=== PATIENT | male | born 1990 | race Caucasian/White ===

== ENCOUNTER 2018-01-16 17:09 | Emergency (ER) | payer OTHER ==
[2018-01-16] MEDS: GI Cocktail Oral Solution 30 ML PO ONE (17:24)
[2018-01-16 17:32] VITALS: BP 137/87
--- NOTE | 2018-01-16 17:32 | EDM.PDOC ---
ED HPI GENERAL MEDICAL PROBLEM - General Chief Complaint: Abdominal Pain Stated Complaint: Abdominal pain Time Seen by Provider: 01/16/18 17:20 Source of Information: Reports: Patient History Limitations: Reports: No Limitations - History of Present Illness INITIAL COMMENTS - FREE TEXT/NARRATIVE: Patient is a 27-year-old who came into the ER with chief complaint left upper quadrant pain and epigastric pain states started around noon progressively gotten worse. Pain is around 8 out of 10 at this time. Onset: Today, Gradual Duration: Hour(s):, Constant Location: Reports: Abdomen Quality: Reports: Ache, Sharp Severity: Moderate Improves with: Reports: Medication Worsens with: Reports: None Context: Reports: Other (Illness) - Related Data Allergies Allergy/AdvReac Type Severity Reaction Status Date / Time No Known Allergies Allergy Verified 01/16/18 17:13 Home Meds: Home Meds Acetaminophen [Tylenol Extra Strength] 1,000 mg PO Q4H PRN 01/16/18 [History] Past Medical History - Past Health History Medical/Surgical History: Denies Medical/Surgical History Social & Family History - Living Situation & Occupation Living situation: Reports: with Significant Other Occupation: Employed ED ROS GENERAL - Review of Systems Review Of Systems: See Below Constitutional: Reports: No Symptoms HEENT: Reports: No Symptoms Respiratory: Reports: No Symptoms Cardiovascular: Reports: No Symptoms Endocrine: Reports: No Symptoms GI/Abdominal: Reports: Abdominal Pain : Reports: No Symptoms Musculoskeletal: Reports: No Symptoms Skin: Reports: No Symptoms ED EXAM, GI/ABD - Physical Exam Exam: See Below Exam Limited By: No Limitations General Appearance: Alert, WD/WN, No Apparent Distress Eyes: Bilateral: Normal Appearance, EOMI Ears: Normal External Exam, Normal Canal, Hearing Grossly Normal, Normal TMs Nose: Normal Inspection, Normal Mucosa, No Blood Throat/Mouth: Normal Inspection, Normal Lips, Normal Teeth, Normal Gums, Normal Oropharynx, Normal Voice, No Airway Compromise Head: Atraumatic, Normocephalic Neck: Normal Inspection, Supple, Non-Tender, Full Range of Motion Respiratory/Chest: No Respiratory Distress, Lungs Clear, Normal Breath Sounds, No Accessory Muscle Use, Chest Non-Tender Cardiovascular: Normal Peripheral Pulses, Regular Rate, Rhythm, No Edema, No Gallop, No JVD, No Murmur, No Rub GI/Abdominal Exam: Normal Bowel Sounds, Soft, Tender (Male) Exam: Deferred Rectal (Males) Exam: Deferred Back Exam: Normal Inspection, Full Range of Motion, NT Extremities: Normal Inspection, Normal Range of Motion, Non-Tender, Normal Capillary Refill, No Pedal Edema Neurological: Alert, Oriented, CN II-XII Intact, Normal Cognition, Normal Gait, Normal Reflexes, No Motor/Sensory Deficits Psychiatric: Normal Affect, Normal Mood Skin Exam: Warm, Dry, Intact, Normal Color, No Rash Course - Orders/Labs/Meds Orders: Active Orders 24 hr Category Date Time Status AMYLASE [CHEM] Stat Lab 01/16/18 17:22 Ordered BASIC METABOLIC PANEL,BMP [CHEM] Stat Lab 01/16/18 17:20 Ordered CBC WITH AUTO DIFF [HEME] Stat Lab 01/16/18 17:20 Ordered H PYLORI STOOL ANTIGEN [MREF] Stat Lab 01/16/18 17:21 Ordered LIPASE [CHEM] Stat Lab 01/16/18 17:22 Ordered Meds: Medications Discontinued Medications Generic Name Dose Route Start Last Admin Trade Name Freq PRN Reason Stop Dose Admin Al Hydroxide/Mg Hydroxide 30 ml 01/16/18 17:20 01/16/18 17:24 Gi Cocktail PO 01/16/18 17:21 30 ml ONETIME ONE Administration Departure - Departure Time of Disposition: 17:50 Disposition: Home, Self-Care 01 Condition: Good Clinical Impression: Abdominal pain Gastritis Qualifiers: Gastritis type: unspecified gastritis Chronicity: acute - Discharge Information *PRESCRIPTION DRUG MONITORING PROGRAM REVIEWED*: No *COPY OF PRESCRIPTION DRUG MONITORING REPORT IN PATIENT MARCIA: No Referrals: Rupinder Burgos PA-C [Primary Care Provider] - Care Plan Goals: Patient diagnosed with gastritis at this time we will send him home on Pepcid 20 mg twice a day for the next 10 days if symptoms return or worsen patient is to see primary physician. - My Orders Last 24 Hours: My Active Orders 01/16/18 17:20 BASIC METABOLIC PANEL,BMP [CHEM] Stat CBC WITH AUTO DIFF [HEME] Stat 01/16/18 17:21 H PYLORI STOOL ANTIGEN [MREF] Stat 01/16/18 17:22 AMYLASE [CHEM] Stat LIPASE [CHEM] Stat - Assessment/Plan Last 24 Hours: My Active Orders 01/16/18 17:20 BASIC METABOLIC PANEL,BMP [CHEM] Stat CBC WITH AUTO DIFF [HEME] Stat 01/16/18 17:21 H PYLORI STOOL ANTIGEN [MREF] Stat 01/16/18 17:22 AMYLASE [CHEM] Stat LIPASE [CHEM] Stat
[2018-01-16] MEDS: Famotidine 20 MG Tab PO ONE (17:39)
[2018-01-16 17:49] LABS: CHLORIDE,CL 102 mmol/L (98-107); SODIUM,NA 140 mmol/L (136-145)
== END 2018-01-16 18:05 | disposition home or self-care (01) ==
LOC: LL.ED 17:09
DX: K29.00 Acute gastritis without bleeding (principal)
CPT/HCPCS: 36415; 80048; 82150; 83690; 85025; 99284; A9270

== ENCOUNTER 2020-12-04 07:42 | Day surgery (SDC) | payer OTHER ==
[2020-12-04] MEDS ORDERED: Propofol 200 MG/20 ML SDV ONE ×2 (08:05→09:32)
[2020-12-04] MEDS ORDERED: Lactated Ringers 1,000 ML IV SCH (09:15)
[2020-12-04] MEDS ORDERED: Sodium Chloride 0.9% 10 ML Syringe FLUSH PRN (09:15)
--- NOTE | 2020-12-04 09:46 | PCM.OPNOTE ---
- General Post-Op/Procedure Note Date of Surgery/Procedure: 12/04/20 Operative Procedure(s): EGD Findings: Normal Pre Op Diagnosis: Epigastric Abd Pain Post-Op Diagnosis: Same Anesthesia Technique: MAC Primary Surgeon: Zane Hatfield Complications: None Condition: Good
--- NOTE | 2020-12-04 09:50 | PCM.HPR ---
H & P Addendum review - H & P Addendum Review Date of Original H & P: 11/06/20 Date Reviewed: 12/04/20 Time Reviewed: 09:30 Patient was Examined: No Changes (Pain has been better)
[2020-12-04 10:49] VITALS: BP 117/83; PULSE 73
--- NOTE | 2020-12-04 14:55 | OR ---
Date of Procedure: 12/04/2020 PREOPERATIVE DIAGNOSIS: Epigastric abdominal pain. POSTOPERATIVE DIAGNOSIS: Normal esophagogastroduodenoscopy. PROCEDURE: Esophagogastroduodenoscopy. ANESTHESIA: IV sedation. DESCRIPTION OF PROCEDURE: The patient was brought to the procedure room where he was placed on his left side and IV sedation administered. Oral bite block was placed and the upper endoscope advanced into the esophagus under direct vision without difficulty. The scope was advanced to the third portion of the duodenum. Duodenum and pylorus were normal. The antrum and body of the stomach were normal. Retroflexion revealed a normal-appearing fundus. Squamocolumnar junction was normal. There were no ulcers or erosions or other mucosal abnormalities that would account for the patient's symptoms. Air was removed from the stomach and the scope withdrawn through the remaining esophagus, which appeared normal. Vocal cords were viewed and appeared normal. The patient tolerated the procedure well and returned to Recovery in stable condition. The patient will continue his omeprazole until he has finished his 1-month course. I would like him to go off at that time and monitor his symptoms since he is feeling better at this time, and I did not have a reason to keep him on long-term omeprazole. JOVI SWAN MD /[id number]
== END 2020-12-04 10:40 | disposition home or self-care (01) ==
LOC: LL.SDS 07:42
PROVIDERS: ATTEND Surgery
DX: R10.13 Epigastric pain (principal); R19.7 Diarrhea, unspecified; Z90.49 Acquired absence of other specified parts of digestive tract
CPT/HCPCS: 00731; J2704; J7120